=== PATIENT | female | born 2000 | race Caucasian/White ===

== ENCOUNTER 2024-04-08 11:51 | Emergency (ER) | payer OTHER, SELFPAY ==
[2024-04-08] VITALS (15 sets, daily range): BP systolic 132–169; BP diastolic 87–109; PULSE 94–135; TEMP 36.9; O2SAT 94–99; BMI 43.9
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
--- NOTE | 2024-04-08 13:14 | ECG_ITS ---
The [facility] Test Date: 2024-04-08 Pat Name: ZAIRA JEAN Department: Room: - Gender: Female [employer]: : 2000 Requested By: RASHI SORIA Order Number: [id number] Reading MD: OLIVERIO FAUST Measurements Intervals [place] Rate: 100 P: 67 FL: 158 QRS: 65 QRSD: 72 T: 35 QT: 310 QTc: 367 Interpretive Statements 1108 Marked sinus arrhythmia 1120 Sinus tachycardia 8102 Low QRS voltage in chest leads 9140 abnormal rhythm ECG No previous ECG available for comparison Electronically Signed On 04-08-2024 18:07:16 EDT by OLIVERIO FAUST
== END 2024-04-08 14:01 | disposition home or self-care (01) ==
PROVIDERS: Emergency Provider Emergency Medicine; PCP Family Medicine
DX: S20.219A Contusion of unspecified front wall of thorax, initial encounter (principal); S20.319A Abrasion of unspecified front wall of thorax, initial encounter; V47.5XXA Car driver injured in collision with fixed or stationary object in traffic accident, initial encounter
CPT/HCPCS: 70450; 71045; 73130; 93005; 99285